=== PATIENT | male | born 1970 | race Caucasian/White ===

== ENCOUNTER → 2018-10-03 | Outpatient (CLI) | payer BC ==
[~2018-10-03] MED LIST: IOPAMIDOL 370 MG/ML 200 ML INFUS..BTL INJ ONE; SODIUM CHLORIDE 0.9% 100 ML 100 ML ONE
[2018-10-03 12:03] LABS: BLOOD UREA NITROGEN 11 mg/dL (7-26); BUN/CREATININE RATIO 10 (6-25); CREATININE, SERUM 1.08 mg/dL (0.72-1.25); EST GLOMERULAR FILTRATION RATE > 60 ML/MIN (60-)
--- NOTE | 2018-10-03 13:45 | Diagnostic Imaging Report ---
EXAM: CTA Chest WITH and without contrast. DATE: 10/03/2018 11:20 AM INDICATION: Rule out dissection, chest pain COMPARISON: None TECHNIQUE: CT angiogram of the chest was obtained before and after the administration of IV contrast. Prospective gating was performed. Images reviewed in the axial, coronal, and sagittal planes. 3D reconstructions performed on off-line workstation. IV Contrast: 100 mL Isovue-370. Total DLP: 1042 mGy*cm Est. Eff. Dose DLP x 0.015 x size factor mSv (CTDIvol has been reviewed and is below limits set by [facility]). Appropriate CT dose reduction techniques were utilized. FINDINGS: Lines and Tubes: None. Lower Neck: The visualized thyroid gland is grossly unremarkable with no suspicious or significant nodule identified. Heart and Great Vessels: The pulmonary artery measure 26 mm. Aortic Annulus: 25 mm. Sinus of Valsalva: 38 mm. Ascending Aorta at level of PA: 28 mm. Mid Arch: 22 mm. Proximal Descendin mm. Mid Descendin mm. Distal Descendin mm. Other: No intramural hematoma, dissection, aneurysm, or atherosclerotic change. Lymph Nodes: No suspicious adenopathy. Lungs: No pneumothorax or pleural effusion. Trachea and central bronchi are unremarkable. Minimal dependent groundglass opacities suggest atelectasis. Upper abdomen: Moderate sized hiatal hernia. Bones and Soft Tissues: No acute findings. IMPRESSION: 1. No aortic aneurysm, dissection, or pulmonary embolus. 2. Moderate hiatal hernia. Signed by: Dr. Lito Eng MD on 10/03/2018 1:42 PM
== END ==
LOC: CT 11:08
PROVIDERS: ATTEND Psychiatry & Neurology Neurology
DX: I71.00 Dissection of unspecified site of aorta (principal)
CPT/HCPCS: 36415; 71275; 82565; 84520; Q9967